=== PATIENT | male | born 1985 | race Caucasian/White ===

== ENCOUNTER 2024-03-21 13:29 | Emergency (ER) | payer OTHER, SELFPAY ==
[2024-03-21 13:34] VITALS: BP 129/87
[2024-03-21 13:37] VITALS: BMI 30.1
--- NOTE | 2024-03-21 14:25 | ED.GENMED ---
History of Present Illness
General
Chief Complaint: Heart Rate Problem
Time Seen by Provider: 03/21/24 13:46
History of Present Illness
History of Present Illness:
39-year-old male with history of polysubstance abuse presenting to the emergency department for medical clearance from correctional facility. Per [facility] home guards, during intake, was noted to be bradycardic. Patient admits to using fentanyl earlier
today. He also admits to methamphetamine abuse. Denies any known history of cardiac disease. Denies any lightheadedness or dizziness. Denies chest pain or difficulty breathing. Denies abdominal pain or GI symptoms. Denies fever or recent
illness. Denies additional acute medical complaints
Phy Exam
Physical Exam
Physical Exam:
General: Well-appearing, no clinical signs of dehydration, nontoxic and in no acute distress
HEENT: protecting airway
Neck: appears supple
CV: Bradycardic, regular rhythm
Resp: No accessory muscle use, no increased work of breathing, lungs clear to auscultation bilaterally
Abd: Soft and non-distended, no tenderness to palpation, normal bowel sounds
Extremities: No deformities, no swelling, no erythema, pulses and sensation intact
Neuro: alert, no focal neurologic deficit
: deferred
Rectal: deferred
Psych: Normal affect
Skin: Intact
Course
Orders/Labs/Results
Orders:
Orders
03/21/24 13:39
EKG [Electrocardiogram (*1)] Urgent
Reason for Study: Bradycardia / Tachycardia
03/21/24 13:40
EKG- Treatment ONCE
Vital Signs
Initial and Last Documented VS:
Initial Vital Signs
Temp Pulse Resp BP Pulse Ox
97.0 F 57 16 129/87 100
03/21/24 13:34 03/21/24 13:34 03/21/24 13:34 03/21/24 13:34 03/21/24 13:34
Last Documented Vital Signs
Temp Pulse Resp BP Pulse Ox
97.0 F 49 16 129/87 99
03/21/24 13:34 03/21/24 14:07 03/21/24 14:07 03/21/24 13:34 03/21/24 14:07
MDM/Problems Addressed
MDM/Problems Addressed:
39-year-old male with history of polysubstance abuse presenting to the emergency department for medical clearance with concern for bradycardia. Vital signs on arrival significant for bradycardia.
On exam, patient well-appearing, no acute distress or discomfort. Patient currently asymptomatic. EKG obtained, sinus bradycardia without any evidence of heart block. Suspect asymptomatic bradycardia. Patient young, without concern for
underlying significant cardiac pathology. Again patient asymptomatic, no presyncopal symptoms. Do not feel patient requires any advanced workup. Feel that he is medically cleared for correctional facility. Drug cessation discussed. Return
precautions discussed and patient verbalized understanding
*EKG
Interpreted by ED Provider?: Yes
EKG Intrepretation Date: 03/21/24
EKG Intrepretation Time: 14:26
Interpretation: normal
Comparison EKG: no changes
Heart Rate: 51
Rate: bradycardiac
Rhythm: sinus
[place]: normal axis
Interval: normal interval
QRS Pattern: normal QRS
Ischemia: no ischemia
*Critical Care Note
Total Time (30-74mins, 75-104mins- exclusive of procedures): Not Applicable
ED Attending Note
-
Portions of this chart may have been created with voice recognition software.� Occasional wrong word or��sound alike� substitutions may have occurred due to the inherent limitations of voice recognition software.
Discharge Plan
Departure
Patient Disposition: Home (Routine Discharge)
Date of Disposition: 03/21/24
Time of Disposition: 14:28
Patient with high blood pressure during this ER visit?: No
Condition: Good
Discharge Problem:
Medical clearance for incarceration, Bradycardia
Instructions: Bradycardia
Referrals:
[facility] [Family Provider] -
Interventions
Interventions:
*Risk Screen - Suicide Last Done: 03/21/24 13:37
*General Assessment Last Done: 03/21/24 13:37
*Neglect/Abuse Screening Last Done: 03/21/24 13:37
*ED COVID-19 Vaccine History Last Done: 03/21/24 13:37
Discharge Date and Time
Print Language: ANGUILLAN
[2024-03-21 14:51] VITALS: BP 141/87
== END 2024-03-21 14:55 | disposition home or self-care (01) ==
LOC: EMR 13:29
PROVIDERS: EMERGENCY PHYSICIAN Student in an Organized Health Care Education/Training Program
DX: R00.1 Bradycardia, unspecified (principal); Z02.89 Encounter for other administrative examinations; F15.10 Other stimulant abuse, uncomplicated
CPT/HCPCS: 99283; 93005